=== PATIENT | male | born 1950 | race Hispanic/Latino ===

== ENCOUNTER → 2019-03-27 | Outpatient (CLI) | payer OTHER ==
[~2019-03-27] VITALS: Ht 170.2 cm; Wt 75.3 kg
[~2019-03-27] MED LIST: REGADENOSON 0.4 MG/5 ML PF SYG IVP SCH
== END | disposition home or self-care (01) ==
LOC: SHCH 08:57
PROVIDERS: ATTEND Internal Medicine Cardiovascular Disease
DX: R06.09 Other forms of dyspnea (principal)
CPT/HCPCS: 78452; 93017; 96374; A9500 ×2; J2785

== ENCOUNTER → 2019-04-17 | Outpatient (CLI) | payer OTHER | END | disposition home or self-care (01) | LOC: SHCH 09:13 | PROVIDERS: ATTEND Internal Medicine Cardiovascular Disease | DX: I65.23 Occlusion and stenosis of bilateral carotid arteries (principal); I25.10 Atherosclerotic heart disease of native coronary artery without angina pectoris | CPT/HCPCS: 93880 ==

== ENCOUNTER → 2019-05-17 | Outpatient (CLI) | payer OTHER | END | disposition home or self-care (01) | LOC: SHCH 09:07 | PROVIDERS: ATTEND Internal Medicine Cardiovascular Disease | DX: I51.7 Cardiomegaly (principal) | CPT/HCPCS: 93306 ==

== ENCOUNTER → 2019-08-31 | Outpatient (CLI) | payer MEDICARE, OTHER | END | disposition home or self-care (01) | LOC: RAH 08:39 | PROVIDERS: ATTEND Family Medicine | DX: K80.20 Calculus of gallbladder without cholecystitis without obstruction (principal); K76.0 Fatty (change of) liver, not elsewhere classified; R16.0 Hepatomegaly, not elsewhere classified; T45.3X Poisoning by, adverse effect of and underdosing of enzymes | CPT/HCPCS: 76700 ==

== ENCOUNTER 2021-04-06 19:11 | Inpatient (IN) | payer MEDICARE, OTHER ==
[~2021-04-06] VITALS: Ht 167.6 cm; Wt 76.2 kg
[2021-04-06] MEDS ORDERED: ONDANSETRON 4MG INJ IVP ONE (19:30)
[2021-04-06] MEDS ORDERED: PROCHLORPERAZINE EDISYLATE 5 MG/ML 2 ML VIAL IM ONE (19:30)
[2021-04-06] MEDS ORDERED: FAMOTIDINE 20MG VIAL IV ONE (19:30)
[2021-04-06] MEDS ORDERED: 0.9%NACL 1000ML 1,000 ML IV ONE ×2 (19:30→23:39)
[2021-04-06 19:41] LABS: EOSINOPHILS % (AUTO) 2.5 % (0.0-8.0); HEMATOCRIT 41.8 % (42-54); LYMPHOCYTES % (AUTO) 30.1 % (21.0-51.0); MEAN CORPUSCULAR HEMOGLOBIN 31.9 pg (27.0-33.0); MEAN CORPUSCULAR HGB CONC 35.6 g/dL (32.0-36.0); MEAN CORPUSCULAR VOLUME 89.5 fL (79-99); MONOCYTES % (AUTO) 2.3 % (3.0-13.0); NEUTROPHILS % (AUTO) 63.9 % (40.0-77.0); PLATELET COUNT (AUTO) 292 K/uL (130-400); RED BLOOD CELL COUNT(AUTO) 4.67 MIL/uL (4.50-6.20); RED CELL DISTRIBUTION WIDTH 12.8 % (11.0-15.5); WHITE BLOOD COUNT (AUTO) 8.7 K/uL (4.8-10.8)
[2021-04-06 19:58] LABS: CREATININE 1.1 mg/dL (0.5-1.5); POTASSIUM 3.4 mmol/L (3.5-5.1)
[2021-04-06] MEDS ORDERED: MORPHINE 4 MG SYG IV ONE (20:00)
[2021-04-06 20:03] LABS: ALBUMIN 4.2 g/dL (3.5-5.0); BILIRUBIN,TOTAL 1.7 mg/dL (0.2-1.0); TOTAL PROTEIN, SERUM 8.1 g/dL (6.0-8.3)
[2021-04-06] MEDS ORDERED: PROCHLORPERAZINE 10MG/2ML INJ IV ONE (20:07)
[2021-04-06] MEDS ORDERED: ACETAMINOPHEN 500 MG TABLET ONE (23:38)
[2021-04-07 02:43] LABS: APPEARANCE,URINE Clear (CLEAR); BILIRUBIN,URINE Small (NEGATIVE); COLOR,URINE Dark Yellow (YELLOW); GLUCOSE, URINE (UA) 500 mg/dL (NEGATIVE); KETONES,URINE Trace mg/dL (NEGATIVE); LEUKOCYTE ESTERASE ,URINE Trace (NEGATIVE); NITRATE,URINE Negative (NEGATIVE); OCCULT BLOOD,URINE Negative (NEGATIVE); PH,URINE 5.5 (5.0-8.0); PROTEIN,URINE Negative (NEGATIVE)
[2021-04-07 02:52] LABS: BACTERIA,URINE Rare /HPF (None Seen); CALCIUM OXALATE CRYSTALS,UR Rare /LPF (None Seen); RBC,URINE 0-1 /HPF (0-1); SQUAMOUS EPITHELIAL CELL,UR 0-2 /HPF (0-2); WBC,URINE 0-1 /HPF (0-1)
[2021-04-07] MEDS ORDERED: 0.9%NACL 1000ML 1,000 ML IV ONE ×2 (03:30→04:30)
[2021-04-07] MEDS: LACTATED RINGERS 1000ML IV SCH (05:00)
[2021-04-07] MEDS ORDERED: ACETAMINOPHEN 325 MG TAB PO PRN (08:00)
[2021-04-07] MEDS ORDERED: 0.9%NACL 1000ML 1,000 ML IV SCH (08:00)
[2021-04-07] MEDS: ZOSYN 3.375GM+NS 50ML 50 ML IV SCH ×2 (08:30→18:17)
[2021-04-07] MEDS ORDERED: POTASSIUM CHLORIDE 10% ELIXIR 20 MEQ/15 ML UDCUP PO PRN (08:30)
[2021-04-07] MEDS ORDERED: ONDANSETRON 4MG INJ IVP PRN (08:30)
[2021-04-07] MEDS ORDERED: ZOSYN 3.375GM+NS 50ML 3.38 GM in 0.9%NACL 50ML 50 ML IV SCH (08:30)
[2021-04-07] MEDS ORDERED: DEXTROSE 50%-WATER 50 ML DISP.SYRIN IV PRN (08:30)
[2021-04-07] MEDS ORDERED: LIDOCAINE HCL-MPF 1% 2ML VIAL IV PRN (08:30)
[2021-04-07] MEDS ORDERED: LIDOCAINE HCL-MPF 1% 2ML VIAL IJ PRN (08:30)
[2021-04-07] MEDS: LACTATED RINGERS 1000ML 1,000 ML IV SCH ×2 (08:30→18:17)
[2021-04-07] MEDS ORDERED: GLUCAGON 1MG KIT 1 MG ML IM PRN (08:30)
[2021-04-07] MEDS ORDERED: POTASSIUM CHLORIDE 20MEQ/100ML 100 ML IV PRN (08:30)
[2021-04-07] MEDS ORDERED: LACTULOSE 20 GM/30 ML UDCUP PO PRN (08:30)
[2021-04-07] MEDS: ENOXAPARIN SODIUM 30 MG/0.3 ML SQ SCH (09:00)
[2021-04-07] MEDS: KCL 20 MEQ ERTAB PO PRN ×2 (09:00→11:30)
[2021-04-07] MEDS: BISACODYL 5 MG TABLET.DR PO SCH ×2 (09:00→20:55)
[2021-04-07] MEDS ORDERED: FAMOTIDINE 20MG VIAL IV ONE (09:00)
[2021-04-07] MEDS: FAMOTIDINE 20MG VIAL IV SCH ×2 (09:00→20:55)
[2021-04-07 09:37] LABS: HEMOGLOBIN A1C 7.2 % (4.0-6.0)
[2021-04-07 09:58] LABS: AMYLASE 24 U/L (25-115); LIPASE 51 U/L (114-286)
[2021-04-07] MEDS ORDERED: LACTATED RINGERS 1000ML IV SCH (10:00)
[2021-04-07] MEDS: METOCLOPRAMIDE 10 MG/2 ML VIAL IVP SCH ×2 (10:37→18:17)
[2021-04-07] MEDS ORDERED: LOSA100T58 PO (10:40)
[2021-04-07] MEDS ORDERED: HYDR12.54 PO (10:41)
[2021-04-07] MEDS: INSULIN HUMULIN R 100 UNIT/ML 3ML SQ SCH ×3 (11:58→20:55)
[2021-04-07] MEDS ORDERED: PROCHLORPERAZINE 10MG/2ML INJ IV ONE (14:00)
[2021-04-07 15:07] LABS: CREATININE 1.1 mg/dL (0.5-1.5); POTASSIUM 3.7 mmol/L (3.5-5.1)
[2021-04-07] MEDS: TAMSULOSIN HCL 0.4 MG CAP.ER.24H PO SCH (18:17)
[2021-04-07] MEDS: INSULIN GLARGINE 100 UNITS/ML 10 ML VIAL SQ SCH (20:55)
[2021-04-08] VITALS: BP 103/54
[2021-04-08] MEDS: MAGNESIUM 2GM PREMIX 50ML 50 ML IV PRN (00:26)
[2021-04-08] MEDS: ZOSYN 3.375GM+NS 50ML 50 ML IV SCH ×3 (00:31→15:31)
[2021-04-08] MEDS: LACTATED RINGERS 1000ML 1,000 ML IV SCH ×3 (00:50→15:34)
[2021-04-08 04:00] VITALS: BP 121/59
[2021-04-08 04:20] LABS: HEMATOCRIT 33.8 % (42-54); MEAN CORPUSCULAR HEMOGLOBIN 31.2 pg (27.0-33.0); MEAN CORPUSCULAR HGB CONC 33.7 g/dL (32.0-36.0); MEAN CORPUSCULAR VOLUME 92.6 fL (79-99); RED BLOOD CELL COUNT(AUTO) 3.65 MIL/uL (4.50-6.20); RED CELL DISTRIBUTION WIDTH 13.6 % (11.0-15.5); WHITE BLOOD COUNT (AUTO) 6.4 K/uL (4.8-10.8)
[2021-04-08 04:34] LABS: ALBUMIN 3.1 g/dL (3.5-5.0); BILIRUBIN,TOTAL 5.5 mg/dL (0.2-1.0); CREATININE 0.9 mg/dL (0.5-1.5); POTASSIUM 3.6 mmol/L (3.5-5.1); TOTAL PROTEIN, SERUM 6.3 g/dL (6.0-8.3)
[2021-04-08] MEDS: LACTATED RINGERS 1000ML IV SCH (05:00)
[2021-04-08] MEDS: METOCLOPRAMIDE 10 MG/2 ML VIAL IVP SCH ×3 (06:05→15:31)
[2021-04-08] MEDS: INSULIN HUMULIN R 100 UNIT/ML 3ML SQ SCH ×4 (06:57→20:48)
[2021-04-08] MEDS: FAMOTIDINE 20MG VIAL IV SCH ×2 (07:24→20:38)
[2021-04-08] MEDS: ENOXAPARIN SODIUM 30 MG/0.3 ML SQ SCH (07:24)
[2021-04-08] MEDS: BISACODYL 5 MG TABLET.DR PO SCH ×2 (07:24→20:38)
[2021-04-08] MEDS: TAMSULOSIN HCL 0.4 MG CAP.ER.24H PO SCH (07:25)
[2021-04-08 07:46] VITALS: BP 101/46
[2021-04-08 11:37] VITALS: BP 137/70
[2021-04-08 15:48] VITALS: BP 134/66
[2021-04-08 19:00] VITALS: BP 165/66
[2021-04-08] MEDS: INSULIN GLARGINE 100 UNITS/ML 10 ML VIAL SQ SCH (20:48)
[2021-04-09] VITALS (26 sets, daily range): BP systolic 115–206; BP diastolic 68–117
[2021-04-09] MEDS: LACTATED RINGERS 1000ML 1,000 ML IV SCH ×2 (00:13→16:16)
[2021-04-09] MEDS: ZOSYN 3.375GM+NS 50ML 50 ML IV SCH ×3 (00:13→21:25)
[2021-04-09] MEDS: LACTATED RINGERS 1000ML IV SCH (04:13)
[2021-04-09 05:15] LABS: HEMATOCRIT 30.3 % (42-54); MEAN CORPUSCULAR HEMOGLOBIN 31.5 pg (27.0-33.0); MEAN CORPUSCULAR HGB CONC 35.3 g/dL (32.0-36.0); MEAN CORPUSCULAR VOLUME 89.1 fL (79-99); RED BLOOD CELL COUNT(AUTO) 3.4 MIL/uL (4.50-6.20); RED CELL DISTRIBUTION WIDTH 13.4 % (11.0-15.5); WHITE BLOOD COUNT (AUTO) 5.3 K/uL (4.8-10.8)
[2021-04-09 05:30] LABS: INR 1.35 (0.85-1.15); PROTHROMBIN TIME 14.3 SEC (9.6-11.6)
[2021-04-09 05:31] LABS: PARTIAL THROMBOPLASTIN TIME 28.5 SEC (26.3-35.5)
[2021-04-09 05:41] LABS: ALBUMIN 2.7 g/dL (3.5-5.0); BILIRUBIN,TOTAL 4.3 mg/dL (0.2-1.0); CREATININE 0.7 mg/dL (0.5-1.5); MAGNESIUM 1.5 mg/dL (1.80-2.40); POTASSIUM 3.3 mmol/L (3.5-5.1); TOTAL PROTEIN, SERUM 6.1 g/dL (6.0-8.3)
[2021-04-09] MEDS: METOCLOPRAMIDE 10 MG/2 ML VIAL IVP SCH ×3 (05:57→16:16)
[2021-04-09] MEDS: POTASSIUM CHLORIDE 20MEQ/100ML 100 ML IV PRN ×2 (05:57→18:03)
[2021-04-09] MEDS: INSULIN HUMULIN R 100 UNIT/ML 3ML SQ SCH ×4 (05:58→21:26)
[2021-04-09] MEDS: MAGNESIUM 2GM PREMIX 50ML 50 ML IV PRN (08:58)
[2021-04-09] MEDS: BISACODYL 5 MG TABLET.DR PO SCH ×2 (09:00→21:25)
[2021-04-09] MEDS: FAMOTIDINE 20MG VIAL IV SCH ×2 (09:00→21:24)
[2021-04-09] MEDS: ENOXAPARIN SODIUM 30 MG/0.3 ML SQ SCH (09:00)
[2021-04-09] MEDS ORDERED: 0.9%NACL 1000ML 1,000 ML IV ONE (09:20)
[2021-04-09] MEDS ORDERED: LIDOCAINE HCL 1% 20 ML VIAL ONE (10:11)
[2021-04-09] MEDS ORDERED: BUPIVACAINE/EPI/PF 0.5% 30ML VIAL IJ ONE (10:11)
[2021-04-09] MEDS ORDERED: SUCCINYLCHOLINE 200MG/10ML SYR ONE (11:01)
[2021-04-09] MEDS ORDERED: DEXAMETHASONE SOD PHOSPHATE 10MG/ML 1ML VIAL ONE (11:01)
[2021-04-09] MEDS ORDERED: LIDOCAINE PF 100MG/5ML (2%) SYRINGE 5ML ONE (11:01)
[2021-04-09] MEDS ORDERED: GLYCOPYRROLATE 1 MG/5 ML SYRINGE ONE (11:02)
[2021-04-09] MEDS ORDERED: NEOSTIGMINE 5MG/5ML SYR IV ONE (11:02)
[2021-04-09] MEDS ORDERED: MIDAZOLAM HCL 1 MG/ML 2ML VIAL ONE (11:02)
[2021-04-09] MEDS ORDERED: PROPOFOL 10 MG/ML 20ML VIAL IV ONE (11:02)
[2021-04-09] MEDS ORDERED: ROCURONIUM 10MG/1ML SYR 10 MG/ML ML ONE (11:03)
[2021-04-09] MEDS ORDERED: FENTANYL CITRATE PF 50 MCG/1 ML 2ML VIAL ONE (11:27)
[2021-04-09] MEDS ORDERED: CEFAZOLIN SODIUM 1 GM VIAL ONE (11:36)
[2021-04-09] MEDS ORDERED: ONDANSETRON 4MG INJ ONE (11:54)
[2021-04-09] MEDS ORDERED: IPRATROPIUM/ALBUTEROL SULFATE 3 ML SOLUTION IH ONE (12:55)
[2021-04-09] MEDS: TAMSULOSIN HCL 0.4 MG CAP.ER.24H PO SCH (13:55)
[2021-04-09] MEDS: OXYCODONE/ACETAMIN 5/325MG TAB PO PRN (14:01)
[2021-04-09] MEDS ORDERED: MORPHINE 2 MG SYG ONE (14:50)
[2021-04-09] MEDS ORDERED: HYDRALAZINE 20MG/ML VIAL IV PRN (15:00)
[2021-04-09] MEDS ORDERED: MORPHINE 4 MG SYG IM PRN (15:00)
[2021-04-09] MEDS ORDERED: MORPHINE 2 MG SYG IVP PRN (15:00)
[2021-04-09] MEDS: INSULIN GLARGINE 100 UNITS/ML 10 ML VIAL SQ SCH (21:28)
[2021-04-10] VITALS: BP 146/79
[2021-04-10 04:00] VITALS: BP 158/82
[2021-04-10] MEDS: LACTATED RINGERS 1000ML 1,000 ML IV SCH (04:19)
[2021-04-10] MEDS: ZOSYN 3.375GM+NS 50ML 50 ML IV SCH ×3 (05:04→21:45)
[2021-04-10] MEDS: OXYCODONE/ACETAMIN 5/325MG TAB PO PRN ×2 (06:14→21:45)
[2021-04-10] MEDS: INSULIN HUMULIN R 100 UNIT/ML 3ML SQ SCH ×4 (06:40→21:49)
[2021-04-10 07:00] VITALS: BP 143/79
[2021-04-10] MEDS: METOCLOPRAMIDE 10 MG/2 ML VIAL IVP SCH ×3 (07:15→16:29)
[2021-04-10 08:49] LABS: ALBUMIN 2.6 g/dL (3.5-5.0); BILIRUBIN,TOTAL 3.3 mg/dL (0.2-1.0); CREATININE 0.7 mg/dL (0.5-1.5); MAGNESIUM 1.6 mg/dL (1.80-2.40); POTASSIUM 3.6 mmol/L (3.5-5.1); TOTAL PROTEIN, SERUM 6.3 g/dL (6.0-8.3)
[2021-04-10] MEDS: FAMOTIDINE 20MG VIAL IV SCH ×2 (09:16→21:44)
[2021-04-10] MEDS: ENOXAPARIN SODIUM 30 MG/0.3 ML SQ SCH (09:16)
[2021-04-10] MEDS: KCL 20 MEQ ERTAB PO PRN ×2 (09:17→11:16)
[2021-04-10] MEDS: TAMSULOSIN HCL 0.4 MG CAP.ER.24H PO SCH (09:17)
[2021-04-10] MEDS: BISACODYL 5 MG TABLET.DR PO SCH ×2 (09:17→21:44)
[2021-04-10] MEDS: MAGNESIUM 2GM PREMIX 50ML 50 ML IV PRN (09:19)
[2021-04-10 11:00] VITALS: BP 126/74
[2021-04-10 15:00] VITALS: BP 125/83
[2021-04-10 21:49] VITALS: BP 148/76
[2021-04-10] MEDS: INSULIN GLARGINE 100 UNITS/ML 10 ML VIAL SQ SCH (21:50)
[2021-04-11 02:01] VITALS: BP 126/73
[2021-04-11 04:56] LABS: HEMATOCRIT 30.9 % (42-54); MEAN CORPUSCULAR HEMOGLOBIN 31.6 pg (27.0-33.0); MEAN CORPUSCULAR VOLUME 90.4 fL (79-99); RED BLOOD CELL COUNT(AUTO) 3.42 MIL/uL (4.50-6.20); RED CELL DISTRIBUTION WIDTH 13.6 % (11.0-15.5); WHITE BLOOD COUNT (AUTO) 9.4 K/uL (4.8-10.8)
[2021-04-11] MEDS: ZOSYN 3.375GM+NS 50ML 50 ML IV SCH (05:11)
[2021-04-11 05:13] VITALS: BP 178/89
[2021-04-11 05:16] LABS: ALBUMIN 2.7 g/dL (3.5-5.0); CREATININE 0.7 mg/dL (0.5-1.5); POTASSIUM 3.4 mmol/L (3.5-5.1); TOTAL PROTEIN, SERUM 6.8 g/dL (6.0-8.3)
[2021-04-11] MEDS: INSULIN HUMULIN R 100 UNIT/ML 3ML SQ SCH (06:47)
[2021-04-11] MEDS: KCL 20 MEQ ERTAB PO PRN (06:49)
[2021-04-11] MEDS: METOCLOPRAMIDE 10 MG/2 ML VIAL IVP SCH (07:30)
[2021-04-11 08:00] VITALS: BP 163/80
[2021-04-11] MEDS: FAMOTIDINE 20MG VIAL IV SCH (10:22)
[2021-04-11] MEDS: BISACODYL 5 MG TABLET.DR PO SCH (10:22)
[2021-04-11] MEDS: TAMSULOSIN HCL 0.4 MG CAP.ER.24H PO SCH (10:22)
[2021-04-11] MEDS: ENOXAPARIN SODIUM 30 MG/0.3 ML SQ SCH (10:23)
[2021-04-11] MEDS ORDERED: AMOX-429 PO (10:29)
[2021-04-11] MEDS ORDERED: MORPHINE 2 MG SYG IVP PRN (11:30)
[2021-04-11 11:38] VITALS: BP 164/86
== END 2021-04-11 13:00 | disposition home or self-care (01) | DRG 853 ==
LOC: EDH 19:11 → EDHIP 04-07 04:48 → OBSVTOIN 04-07 04:48 → 4DH 04-07 22:27
PROVIDERS: ADMIT Internal Medicine Critical Care Medicine; ATTEND Internal Medicine Critical Care Medicine
PROC: 0FT44ZZ Resection of Gallbladder, Percutaneous Endoscopic Approach (ICD-10-PCS; principal; 2021-04-09 11:00)
DX: A41.9 Sepsis, unspecified organism (principal); R65.21 Severe sepsis with septic shock; K80.00 Calculus of gallbladder with acute cholecystitis without obstruction; N39.0 Urinary tract infection, site not specified; N20.0 Calculus of kidney; E86.0 Dehydration; E87.6 Hypokalemia; K76.0 Fatty (change of) liver, not elsewhere classified; E11.40 Type 2 diabetes mellitus with diabetic neuropathy, unspecified; Z20.822 Contact with and (suspected) exposure to COVID-19; I10 Essential (primary) hypertension; N32.89 Other specified disorders of bladder; E11.65 Type 2 diabetes mellitus with hyperglycemia; K59.00 Constipation, unspecified; K82.8 Other specified diseases of gallbladder; Z79.4 Long term (current) use of insulin; Z79.899 Other long term (current) drug therapy; Z87.442 Personal history of urinary calculi; Z83.3 Family history of diabetes mellitus; Z82.49 Family history of ischemic heart disease and other diseases of the circulatory system
CPT/HCPCS: 36415; 74176; 76705; 78226; 80048; 80053; 81001; 82140; 82150; 82948; 83036; 83605; 83690; 83735; 84145; 84484; 85025; 85027; 85610; 85730; 86850; 86900; 86901; 87040; 87077; 87088; 87186; 87635; 87804; 88304; 93005; 94640; A9537; C9803; G0378; J0330; J0690; J0780; J1100; J1650; J1815; J2001; J2250; J2270; J2405; J2543; J2704; J2710; J2765; J3010; J3475; J3480; J3490; J7030; J7120

== ENCOUNTER → 2021-05-20 | Outpatient (CLI) | payer MEDICARE, OTHER ==
[~2021-05-20] MED LIST changes: +AMOX-429 PO; +HYDR12.54 PO; +LOSA100T58 PO; -REGADENOSON 0.4 MG/5 ML PF SYG IVP SCH
== END | disposition home or self-care (01) ==
LOC: SHCH 14:11
PROVIDERS: ATTEND Internal Medicine Cardiovascular Disease
DX: I51.7 Cardiomegaly (principal); E11.9 Type 2 diabetes mellitus without complications; R55 Syncope and collapse
CPT/HCPCS: 93306; 93356

== ENCOUNTER → 2024-01-31 | Outpatient (CLI) | payer MEDICARE, OTHER ==
[~2024-01-31] MED LIST changes: -LOSA100T58 PO; +LOSA100T59 PO
[2024-01-31] MEDS: REGADENOSON 0.4 MG/5 ML PF SYG IVP ONE (11:10)
== END | disposition home or self-care (01) ==
LOC: SHCH 07:40
PROVIDERS: ATTEND Internal Medicine Cardiovascular Disease
DX: R94.31 Abnormal electrocardiogram [ECG] [EKG] (principal)
CPT/HCPCS: 78452; 96374; 93017; J2785; A9500 ×2

== ENCOUNTER → 2025-04-27 | Outpatient (CLI) | payer MEDICARE, OTHER ==
[2025-04-27 13:44] LABS: CREATININE 0.8 mg/dL (0.5-1.3); GLOMERULAR FILTR. RATE CALC 93.0 mL/min (>90); GLUCOSE,RANDOM 151.0 mg/dL (70-105); SODIUM SERUM 141.0 mmol/L (136-145); UREA NITROGEN, BLOOD 12.0 mg/dL (7-18)
== END | disposition home or self-care (01) ==
LOC: LAB 13:09
PROVIDERS: ATTEND Internal Medicine Cardiovascular Disease
DX: I10 Essential (primary) hypertension (principal); R94.31 Abnormal electrocardiogram [ECG] [EKG]; Z51.81 Encounter for therapeutic drug level monitoring
CPT/HCPCS: 36415; 80048

== ENCOUNTER → 2025-04-30 | Outpatient (CLI) | payer MEDICARE, OTHER ==
[~2025-04-30] MED LIST changes: +IOHEXOL 350 MG/ML 100ML INFUS..BTL IV ONE
--- NOTE | 2025-05-02 15:09 | CARDIOLOGY ---
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 A dedicated, limited window, coronary imaging protocol was used, with single breath-hold, retrospective ECG gating, and automated arrhythmia rejection. 100 cc of low osmolar contrast agent: Omnipaque 350 was delivered via a 18-gauge IV catheter in the right antecubital fossa, using a power injector and followed by 60 cc of normal saline bolus as a chaser. Collimated images were reformatted at 0.5 mm intervals, and sent to an offline independent workstation for interpretation, using 3D anatomic reconstructions: Curved multiplanar reconstructions, maximum intensity projections, and multiplanar imaging. 5 mg IV metoprolol was administered prior to scanning. 0.8 mg SL nitroglycerin was given. CORONARY ARTERY DESCRIPTIONS: The coronary arteries arise in normal position. Left main coronary artery: Normal caliber vessel that bifurcates into the LAD and LCx. No stenosis. Left anterior descending coronary artery: Normal caliber vessel and gives rise to diagonal and septal branches. The LAD is a DEAL ARCHITECT. The Diagonal 1 is a DEAL ARCHITECT. Left circumflex coronary artery: Normal caliber, nondominant and gives rise to a large OM branch. There is mixed calcified and noncalcified plaque in the mid LCx with 70-80% stenosis.The distal LCx is sub-totally occluded. Right coronary artery: Large, dominant vessel giving rise to the PL and PDA branches. The RCA is sub-totally occluded proximally and distally. The R PDA is also severely and diffusely diseased. CAD-RADs: 5, DEAL ARCHITECT. Thoracic Aorta: Normal diameter. Marichuy Palmer MD Cardiovascular Disease [facility] MARICHUY PALMER MD May 02, 2025 15:09
== END | disposition home or self-care (01) ==
LOC: RAH 08:14
PROVIDERS: ATTEND Internal Medicine Cardiovascular Disease
DX: I25.110 Atherosclerotic heart disease of native coronary artery with unstable angina pectoris (principal)
CPT/HCPCS: 75574; J3490; Q9967 ×2